=== PATIENT | male | born 1960 | race Caucasian/White ===

== ENCOUNTER 2016-09-21 11:57 | Emergency (ER) | payer MEDICARE, OTHER ==
[2016-09-21] MEDS ORDERED: MORPHINE IM ONE (12:50)
[2016-09-21] MEDS ORDERED: ZOFRAN IM ONE (12:50)
--- NOTE | 2016-09-21 13:04 | Emergency Department Report ---
HPI - General Chief Complaint: Fall Time Seen by Provider: 09/21/16 12:40 - HPI HPI: Room 6 The patient is a 55-year-old male presenting with a chief complaint of pain after fall. The patient states he was on his way to see his primary physician for a sinus infection and he slipped and fell down approximately 7 stairs landing on the hardwood floor. The patient states he toppled end over end and tried to break his fall with his left wrist. Patient complains of pain in bilateral forearms, bilateral hips, bilateral knees and bilateral ankles. The patient gives his pain a score ranging from 4-9/10. Patient complains of a slight headache. Patient denies back pain. Patient denies loss of consciousness. The patient states he was going to see his primary physician because for the past 2 days he's had a yellow discharge and facial tenderness/ pressure Location: [see above] Duration: [see above] Quality: Pain Severity: [see above] Modifying factors: [see above] Context: [see above] Mode of transportation: [not driving] ED Past Medical Hx - Past Medical History Hx Hypertension: Yes Hx CVA: Yes Hx Congestive Heart Failure: Yes Hx Diabetes: Yes Additional medical history: Hyperlipidema - Surgical History Hx Internal Defibrillator: Yes Additional Surgical History: Defib - Family History Family history: no significant - Social History Smoking Status: Never Smoker Substance Use Type: None - Medications Home Medications: Home Medications Medication Instructions Recorded Confirmed Last Taken Type Azithromycin [Zithromax Z-LAUREN] 0 mg PO DAILY #6 tab 09/21/16 Unknown Rx oxyCODONE /ACETAMINOPHEN [Percocet 1 - 2 tab PO Q6HR PRN #14 tablet 09/21/16 Unknown Rx 5/325] ED Review of Systems ROS: Stated complaint: HIP AND KNEE PAIN Other details as noted in HPI Comment: All other systems reviewed and negative Constitutional: denies: chills, fever Eyes: denies: eye pain, eye discharge, vision change ENT: congestion, other (facial pressure) Respiratory: denies: cough, shortness of breath, wheezing Cardiovascular: denies: chest pain, palpitations Endocrine: no symptoms reported Gastrointestinal: denies: abdominal pain, nausea, diarrhea Genitourinary: denies: urgency, dysuria Musculoskeletal: arthralgia, myalgia Skin: denies: rash, lesions Neurological: headache. denies: weakness, paresthesias Psychiatric: denies: anxiety, depression Hematological/Lymphatic: denies: easy bleeding, easy bruising Physical Exam - Physical Exam Vital Signs: Vital Signs 09/21/16 09/21/16 12:17 12:51 Temperature 98.8 F Pulse Rate 64 Respiratory 18 18 Rate Blood Pressure 129/69 [Right] O2 Sat by Pulse 95 100 Oximetry Physical Exam: GENERAL: The patient is well-developed well-nourished male lying on stretcher appearing to be in moderate discomfort. [] HEENT: Normocephalic. Atraumatic. Extraocular motions are intact. Patient has moist mucous membranes. Bilateral frontal and maxillary sinus NECK: Supple. Trachea Midline. No axial step off CHEST/LUNGS: Clear to auscultation. There is no respiratory distress noted. HEART/CARDIOVASCULAR: Regular. There is no tachycardia. There is no gallop rub or murmur. ABDOMEN: Abdomen is soft, nontender. Patient has normal bowel sounds. There is no abdominal distention. SKIN: There is no rash. There is no edema. There is no diaphoresis. There is an approximately 4 cm diameter pome on the right forearm NEURO: The patient is awake, alert, and oriented. The patient is cooperative. The patient has normal speech MUSCULOSKELETAL: There is tenderness to palpation of bilateral knees, ankles, hips and forearms ED Course Vital Signs 09/21/16 09/21/16 12:17 12:51 Temperature 98.8 F Pulse Rate 64 Respiratory 18 18 Rate Blood Pressure 129/69 [Right] O2 Sat by Pulse 95 100 Oximetry ED Medical Decision Making - Radiology Data Radiology results: report reviewed (CT head), image reviewed (bilateral hip x- rays, bilateral knee x-rays, bilateral ankle x-rays, bilateral forearm x-rays, CT head, CT cervical spine) interpreted by me: Lateral hip x-rays-no acute fracture or dislocation Bilateral knee x-rays-no acute fracture Bilateral ankle x-ray-no acute fractures Lateral forearm x-rays-no acute fractures CT Head (read by radiologist)-no acute intracranial abnormality CT cervical spine (read by radiologist)-technically limited study demonstrating no acute findings. Degenerative disc disease and facet joint arthropathy - Differential Diagnosis forearm fracture, hip fracture, ankle fracture, sinusitis, ICH Critical care attestation.: If time is entered above; I have spent that time in minutes in the direct care of this critically ill patient, excluding procedure time. ED Disposition Clinical Impression: Sinusitis, acute, Closed head injury, Contusion of forearm, left, Contusion of forearm, right, Contusion of knee, left, Contusion of knee, right Disposition: DISCHARGED TO HOME OR SELFCARE Is pt being admited?: No Does the pt Need Aspirin: No Condition: Stable Instructions: Minor Head Injury (ED), Knee Pain (ED) Additional Instructions: Return to the emergency department immediately should you develop worsening symptoms, fever, inability to tolerate food or liquid or any other concerns. Prescriptions: Azithromycin [Zithromax Z-LAUREN] 0 mg PO DAILY #6 tab oxyCODONE /ACETAMINOPHEN [Percocet 5/325] 1 - 2 tab PO Q6HR PRN #14 tablet PRN Reason: Pain Referrals: MICHELLE RAMON MD [Staff Physician] - 3-5 Days PRIMARY CARE, [Primary Care Provider] - 3-5 Days (Please follow-up with your primary physician or your pain specialist for further management) Time of Disposition: 15:51
--- NOTE | 2016-09-21 15:26 | XRay Report ---
BILATERAL KNEES, 3 VIEWS: History: Pain after fall. Findings: Mild bicompartmental osteoarthritic changes are identified. No evidence for fracture, bone lesion or joint effusion. Impression: Mild degenerative changes. No acute process.
--- NOTE | 2016-09-21 15:27 | Cat Scan Report ---
CT HEAD WITHOUT CONTRAST: HISTORY: Pain, injury. Serial contiguous axial images were obtained through the cranium. Intravenous contrast material was not administered. The ventricles are normal in size and appearance. There is no mass effect or midline shift. No areas of abnormally increased or decreased attenuation are seen. No mass lesion is seen. The mastoid air cells and visualized portions of the sinuses are normal. IMPRESSION: Cranial CT scan within normal limits.
--- NOTE | 2016-09-21 15:33 | XRay Report ---
BILATERAL HIPS WITH PELVIS, 3 VIEWS: History: Pain. Findings: Bone mineralization is within normal limits. There is no evidence for fracture, dislocation or pelvic diastasis. Moderate osteoarthritic joint space narrowing is noted in the left hip. The soft tissues are within normal limits. Impression: Moderate osteoarthritic changes of the left hip. No acute process.
--- NOTE | 2016-09-21 15:42 | Cat Scan Report ---
CT of the cervical spine. Findings: Helical acquisition with axial reconstructed images, sagittal and coronal reformatted images. Findings: The technical quality the study is limited by the patient's body habitus. In the left lateral mass of C1, there is focal well corticated lucency, but no evidence of a fracture. This is most likely degenerative. There is moderate to severe spondylosis at C56 and C6-7. There is no evidence of subluxation. The posterior elements are normal. The odontoid is intact. Multilevel facet joint arthropathy is present. Impression: Technically limited study demonstrating no acute findings. Degenerative disc disease and facet joint arthropathy are described.
[2016-09-21 17:26] VITALS: BP 132/78
--- NOTE | 2016-09-22 11:00 | XRay Report ---
Bilateral forearm, 2 views of each: AP and lateral views are obtained. They include portions of the wrist and elbow joints. There are no fractures or dislocations. There is a small calcific spur or tendon calcium adjacent to the medial humerus condyle of the right elbow and a similar finding on the left. The bones are well-mineralized. There is no obvious swelling and no foreign body. Impressions: No fracture or acute finding.
--- NOTE | 2016-09-22 11:02 | XRay Report ---
Bilateral ankles, 3 views each: There are no fractures or dislocations. The joints are aligned and preserved. The articular margins are smooth. The bones are well-mineralized. There is no significant swelling. Impression: No significant pathology identified.
== END 2016-09-21 17:26 | disposition home or self-care (01) ==
LOC: ED 11:57
DX: S50.12XA Contusion of left forearm, initial encounter (principal); S80.02XA Contusion of left knee, initial encounter; S80.01XA Contusion of right knee, initial encounter; S50.11XA Contusion of right forearm, initial encounter; S09.90XA Unspecified injury of head, initial encounter; J01.90 Acute sinusitis, unspecified; I10 Essential (primary) hypertension; I50.9 Heart failure, unspecified; E11.9 Type 2 diabetes mellitus without complications; E78.00 Pure hypercholesterolemia, unspecified; W10.9XXA Fall (on) (from) unspecified stairs and steps, initial encounter; Y93.9 Activity, unspecified; Y92.9 Unspecified place or not applicable; Y99.9 Unspecified external cause status
CPT/HCPCS: 70450; 72125; 73090; 73521; 73562; 73610; 96372; 99284; J2270; J2405